=== PATIENT | female | born 1975 | race Caucasian/White ===

== ENCOUNTER 2017-06-02 17:52 | Emergency (ER) | payer MEDICARE, MEDICAID ==
--- NOTE | 2017-06-02 18:23 | Emergency Department Record ---
History of Present Illness - General Chief Complaint: Seizures Stated Complaint: SEIZURE Time Seen by Provider: 06/02/17 18:15 Source: Patient, EMS Mode of Arrival: EMS Limitations: Altered mental status - History of Present Illness Initial Comments: 41 yo female presents by EMS with AMS after a possible seizure. She had been in her prior normal state of health before the event. She was over at her sisters home visiting and watching TV. Her sister had step out to buy some snacks per the parents. Upon return the patient was incoherent and shaking. She had not been ill or having any symptoms earlier. Per her parents she might have had a seizure 20 years ago. She does not smoke, rarely drinks and family is unaware of any history of drug use. Her PCP is Dr Ernandez in [place]. the [id number] presented to the ED at 19:00 He reports the patient was in her usual state of health. They heard a loud noise and call for help. The patient was found in the kitchen, clinched up with sharking, She had clinched hands and fist. He stated she was not verbal and seems to slur and have droop to the face. This lasted about 15 minutes total then she seemed to relax. Her words slowly returned to understandable but not able to put complete thoughts together. Onset/Timin -: Minutes(s) Duration of Episode: 15 -: Minutes(s) Witnessed: Yes - by bystander Trauma: No Seizure History: Other (Possibly 20 years ago) Associated Symptoms: Confusion - [place] Coma Scale Eye Response: (4) Open spontaneously Motor Response: (5) Localizes to pain Verbal Response: (4) Confused conversation [place] Total: 13 - Related Data Home Medications Medication Instructions Recorded Confirmed Last Taken Carisoprodol [Soma] 350 mg PO QID 10/05/14 06/02/17 06/02/17 Pantoprazole Sodium [Protonix] 40 mg PO DAILY 10/05/14 06/02/17 06/02/17 Divalproex Sodium [Depakote] 500 mg PO QHS 06/02/17 06/02/17 06/02/17 Levothyroxine Sodium [Synthroid] 75 mcg PO DAILY 06/02/17 06/02/17 06/02/17 Olanzapine [Zyprexa] 20 mg PO DAILY 06/02/17 06/02/17 06/02/17 Allergies Allergy/AdvReac Type Severity Reaction Status Date / Time No Known Drug Allergies Allergy Verified 10/05/14 18:24 Travel Screening - Travel/Exposure Within Last 30 Days Have you traveled within the last 30 days?: No - Travel/Exposure Within Last Year Have you traveled outside the [place] in the last year?: No - Additonal Travel Details Have you been exposed to anyone with a communicable illness?: No Review of Systems ROS unobtainable: Due to mental status Past Medical History - SOCIAL HISTORY Smoking Status: Current every day smoker Alcohol Use: None Drug Use: None - RESPIRATORY Hx Respiratory Disorders: No Comment:: denies - CARDIOVASCULAR Hx Cardio Disorders: No Comment:: denies - NEURO Hx Neuro Disorders: No - GI Hx GI Disorders: Yes Hx Reflux: Yes - Hx Genitourinary Disorders: No - ENDOCRINE Hx Endocrine Disorders: Yes Hx Diabetes: No Hx Thyroid Disease: Yes - MUSCULOSKELETAL Hx Musculoskeletal Disorders: No - PSYCH Hx Psych Problems: Yes Hx Anxiety: Yes Hx Behavior Problems: Yes Hx Depression: Yes Comment:: bipolar - HEMATOLOGY/ONCOLOGY Comment:: possible cancer Family Medical History Any Significant Family History?: No Family Hx Comment (NOT TO BE USED IN PLACE OF ITEMS BELOW): unable to get answer from patient Physical Exam - General General Appearance: Other (Resting with eyes closed, opens eyes to voice but unable to sustain a complete sentance, words are understandable, slurred) - Head Head exam: Atraumatic, Normocephalic, Normal inspection Head exam detail: negative: Abrasion - Eye Eye exam: Normal appearance, PERRL. negative: Conjunctival injection, Periorbital swelling - ENT ENT exam: Normal exam, Mucous membranes moist Ear exam: Normal external inspection Nasal Exam: Normal inspection Mouth exam: Normal external inspection Teeth exam: Normal inspection Throat exam: Normal inspection - Neck Neck exam: Normal inspection, Full ROM. negative: Tenderness - Respiratory Respiratory exam: Normal lung sounds bilaterally. negative: Respiratory distress - Cardiovascular Cardiovascular Exam: Regular rate, Normal rhythm, Normal heart sounds Peripheral Pulses: 2+: Radial (R), Radial (L) - GI/Abdominal GI/Abdominal exam: Soft, Normal bowel sounds. negative: Tenderness - Rectal Rectal exam: Deferred - exam: Deferred - Extremities Extremities exam: Normal inspection, Full ROM, Normal capillary refill. negative: Tenderness - Back Back exam: Reports: Normal inspection, Full ROM. Denies: Muscle spasm, Rash noted, Tenderness - Neurological Neurological exam: Abnormal gait, Altered. negative: Oriented X3 - Psychiatric Psychiatric exam: Flat affect - Skin Skin exam: Dry, Intact, Normal color, Warm Course Vital Signs 06/02/17 17:55 Temperature 98.5 F Pulse Rate 96 H Respiratory 20 Rate Blood Pressure 104/79 Pulse Ox 96 - Reevaluation(s) Reevaluation #1: The CBC was reviewed. No acute changes The CMP was reviewed No acute changes The Alcohol, Salivate, Acetaminophen were negative Depakote <10 Ammonia 22 06/02/17 19:24 Reevaluation #2: Recheck. The patient is alert with slow but full sentences. She is slurred and slowed. She is mildly tremulous all over. CN intact as tested with symmetric face, smile, eye closure, tongue. No PND of the upper extremities. No recall of the events. Normal Finger to nose. No PND of the lower legs. NIH 0 06/02/17 19:36 06/02/17 19:53 Reevaluation #3: HCT is negative EKG NSR rate 91, intervals QTC 577, [place] normal, ST normal 06/02/17 19:48 06/02/17 19:52 With the seizure vs syncope vs other and the prolonged Qtc the patient will need to be admitted for further monitoring and work up She prefers [facility]. [facility] was contacted. 06/02/17 19:54 Reevaluation #4: I LORETO Hdez She will accept the transfer for admission 06/02/17 20:01 Medical Decision Making - Lab Data Result diagrams: 06/02/17 18:05 06/02/17 18:05 Disposition Disposition: Transfer Clinical Impression: Encephalopathy acute, Seizure, Prolonged Q-T interval on ECG Disposition: Acute Care Hospital Transfer Transfer To: [facility] Reason For Transfer: Seizure vs Syncope Accepting Physician: Ketty Time Discussed w/Accepting Physician: 20:02 Forms: Patient Portal Access Time of Disposition: 20:02 Quality - Quality Measures Quality Measures: N/A - Blood Pressure Screening Does Patient Have Any of the Following: No Blood Pressure Classification: Normal BP Reading Systolic Measurement: 104 Diastolic Measurement: 79 Screening for High Blood Pressure: < Normal BP, F/U Not Required > [G8783]
[2017-06-02 18:37] LABS: BASO % 0.3 % (0-6); EOS % 1.6 % (0-6); GRAN % 39.1 % (47-80); HEMATOCRIT 40.3 % (35.0-47.0); HEMOGLOBIN 14.1 gm/dl (11.6-16.0); LYMPH % 48.7 % (16-45); MEAN CELL VOLUME 94.8 fl (81-97); MEAN CORPUSCULAR HEMOGLOBIN 33.2 pg (27-33); MEAN PLATELET VOLUME 10.6 fl (7.4-10.4); MONO % 10.3 % (0-9); PLATELET COUNT 334 K/uL (130-400); RED BLOOD COUNT 4.25 M/uL (3.80-5.40); RED CELL DISTRIBUTION WIDTH 12.7 % (11.5-14.5); WHITE BLOOD COUNT W/O DIFF 9.5 K/uL (4.2-12.2)
[2017-06-02 18:48] LABS: AMMONIA 20.9 umol/L (9-30); LACTIC ACID 1.8 mmol/L (0.7-2.1)
[2017-06-02 19:03] LABS: BLOOD UREA NITROGEN 6 mg/dL (7-17); CREATININE 0.7 mg/dL (0.52-1.04); EST GLOMERULAR FILTRATION RATE > 60 ml/min; GLUCOSE,RANDOM 88 mg/dL (70-110)
[2017-06-02 19:04] LABS: ACETAMINOPHEN < 10.0 ug/mL (10.0-30.0); ALB/GLOB RATIO 1.5 (1.1-1.8); ALBUMIN 4.3 gm/dL (3.5-5.0); ALKALINE PHOSPHATASE 62 U/L (38-126); ALT/SGPT 37 U/L (9-52); AST/SGOT 28 U/L (14-36); CREATINE PHOSPHOKINASE 52 U/L (30-135); SALICYLATE < 1.0 mg/dL (2.8-20.0); TOTAL PROTEIN 7.1 gm/dL (6.3-8.2); TROPONIN I < 0.012 ng/mL (0.00-0.034)
[2017-06-02 19:05] LABS: VALPROIC ACID (DEPAKENE) < 10.0 ug/mL (50.0-100.0)
[2017-06-02 19:35] LABS: URINE APPEARANCE CLEAR; URINE BILIRUBIN NEGATIVE (NEGATIVE); URINE BLOOD NEGATIVE (NEGATIVE); URINE COLOR YELLOW; URINE GLUCOSE (UA) NEGATIVE (NEGATIVE); URINE KETONE NEGATIVE (NEGATIVE); URINE LEUKOCYTE ESTERASE NEGATIVE (NEGATIVE); URINE NITRITE NEGATIVE (NEGATIVE); URINE PROTEIN NEGATIVE (NEGATIVE); URINE UROBILINOGEN 0.2 E.U./dL (0.20 - 1.00)
[2017-06-02 19:36] LABS: HCG,QUALITATIVE URINE NEGATIVE (NEGATIVE)
[2017-06-02 19:38] LABS: AMPHETAMINE SCREEN URINE NOT DETECTED; BARBITURATE SCREEN URINE NOT DETECTED; BENZODIAZEPINE SCREEN URINE DETECTED; COCAINE SCREEN URINE NOT DETECTED; METHADONE SCREEN URINE NOT DETECTED; METHAMPHETAMINE SCREEN NOT DETECTED; OPIATE SCREEN URINE NOT DETECTED; OXYCODONE SCREEN URINE NOT DETECTED; PHENCYCLIDINE SCREEN URINE NOT DETECTED; PROPOXYPHENE SCREEN URINE NOT DETECTED; THC SCREEN URINE NOT DETECTED; TRICYCLIC ANTIDEPRESSANT SCRN NOT DETECTED
--- NOTE | 2017-06-04 22:11 | CT SCAN REPORT ---
EXAM: CT SCAN HEAD WO CONTRAST HISTORY: SEIZURE. TECHNIQUE: CT brain without contrast. COMPARISON: None. FINDINGS: The globes are intact. Paranasal sinuses and mastoid air cells are unremarkable. No displaced or depressed skull fracture. No intra or extraaxial hemorrhage. CT limited for evaluation of acute infarct. No CT evidence for large or territorial acute infarct. No mass or midline shift. IMPRESSION: NEGATIVE EXAM. JOB NUMBER: [id number] MTDD
== END 2017-06-02 21:30 | disposition short-term general hospital (02) ==
LOC: ER 17:52
DX: G93.40 Encephalopathy, unspecified (principal); R56.9 Unspecified convulsions; I45.81 Long QT syndrome; R41.82 Altered mental status, unspecified; Z79.899 Other long term (current) drug therapy
CPT/HCPCS: 99285 ×2; 82550; 83605; 83735; 82140; 85025; 84484; 80053; 81003; 81025; 80305; 80164; 70450; 93005; 93010; G0480 ×3; 80320; 80329

== ENCOUNTER 2017-10-09 21:19 | Emergency (ER) | payer MEDICARE, MEDICAID ==
--- NOTE | 2017-10-09 21:47 | Emergency Department Record ---
History of Present Illness - General Chief Complaint: Fall Injury Stated Complaint: FALL INJURY Time Seen by Provider: 10/09/17 21:35 Source: Patient Mode of Arrival: Ambulatory Limitations: No limitations - History of Present Illness Initial Comments: The patient is here due to tripping and falling 5 hours ago and injuring the L side of her face. She denies any LOC but states she did hit her head. The patient did sustain a laceration to the L maxilla area. She denies any neck pain , blurred vision, nausea, vomiting, or confusion. She did drive herself to the ER and states she is not on any blood thinner medicines. She also states her last TD was 4 years ago. The patient does have a significant psych. hx and is on multiple psych medicines. MD Complaint: Fall Onset/Timin -: Hour(s) Fall From: Standing When Fall Occurred: 4-6 hours W[employer] HAND Fall Witnessed: No Place Fall Occurred: Home Loss of Consciousness: None Prolonged Down Time?: No Symptoms Prior to Fall: None Location: Head, Face Severity scale (1-10): 7 Associated Symptoms: Denies - [place] Coma Scale Eye Response: (4) Open spontaneously Motor Response: (6) Obeys commands Verbal Response: (5) Oriented [place] Total: 15 - Related Data Allergies Allergy/AdvReac Type Severity Reaction Status Date / Time desvenlafaxine [From Pristiq] Allergy shakes Verified 10/09/17 21:27 metoclopramide [From Reglan] AdvReac VOMITING Verified 10/09/17 21:27 Travel Screening - Travel/Exposure Within Last 30 Days Have you traveled within the last 30 days?: No - Travel Symptoms Symptom Screening: None Review of Systems Constitutional: Denies: Chills, Fever Eyes: Denies: Eye discharge ENT: Denies: Congestion Respiratory: Denies: Cough, Dyspnea Past Medical History - SOCIAL HISTORY Smoking Status: Current every day smoker Alcohol Use: None - RESPIRATORY Hx Respiratory Disorders: No Comment:: denies - CARDIOVASCULAR Hx Cardio Disorders: No Comment:: denies - NEURO Hx Neuro Disorders: No - GI Hx GI Disorders: Yes Hx Reflux: Yes - Hx Genitourinary Disorders: No - ENDOCRINE Hx Endocrine Disorders: Yes Hx Diabetes: No Hx Thyroid Disease: Yes - MUSCULOSKELETAL Hx Musculoskeletal Disorders: No - PSYCH Hx Psych Problems: Yes Hx Anxiety: Yes Hx Behavior Problems: Yes Hx Depression: Yes Comment:: bipolar - HEMATOLOGY/ONCOLOGY Hx Hematology/Oncology Disorders: No Comment:: possible cancer Family Medical History Any Significant Family History?: Yes Hx Cancer: Grandparents Physical Exam - General General Appearance: Alert, Oriented x3, Cooperative, No acute distress - Head Head exam: Atraumatic, Normocephalic, Normal inspection - Eye Eye exam: Normal appearance, PERRL - ENT ENT exam: negative: Normal exam (There is a 2 cm laceration to the L maxilla area.) - Neck Neck exam: Normal inspection, Full ROM. negative: Tenderness (There is no Cspine tenderness.) - Respiratory Respiratory exam: Normal lung sounds bilaterally. negative: Respiratory distress - Cardiovascular Cardiovascular Exam: Regular rate, Normal rhythm, Normal heart sounds - Extremities Extremities exam: Normal inspection, Full ROM, Normal capillary refill. negative: Tenderness - Neurological Neurological exam: Alert (The patient's speech is somewhat slow at times but she says that is normal for her due to her psych medicines.), Normal gait, Oriented X3. negative: Abnormal gait, Altered, Motor sensory deficit Course Vital Signs 10/09/17 21:28 Temperature 97.6 F Pulse Rate [ 98 H Pulse Ox Probe] Respiratory 28 H Rate Blood Pressure 111/67 [Left Arm] Pulse Ox 98 - Reevaluation(s) Reevaluation #1: Procedure note: The L facial LAC was anesth. with 1.5 cc's [place] 1% with Epi. The lac was cleansed with sterile saline and betadine. The lac was then closed with 6 5.0 nylon sutures. There were no complications. 10/09/17 22:50 Reevaluation #2: The patient is doing very well at this time. Her gait is steady and her speech clear. I did ask her about the positive drug screen and she states she does chronically take Bryson and Xanax. She states she did not overdose or take to many of them. She is to keep her laceration clean and have the sutures removed in 7 days. 10/09/17 23:11 Medical Decision Making - Data Complexity MDM Data: Labs Ordered and/or Reviewed, X-Ray Ordered and/or Reviewed - Lab Data Result diagrams: 10/09/17 21:47 10/09/17 21:47 - Radiology Data Radiology results: Report reviewed (Head and Maxillofacial CT: Neg for any acute abnormalities.) Disposition Disposition: Discharge Clinical Impression: Facial injury Qualifiers: Encounter type: initial encounter Qualified Code(s): S09.93XA - Unspecified injury of face, initial encounter Disposition: Home, Self-Care Condition: (2) Stable Instructions: Facial Laceration (ED) Additional Instructions: Please take Tylenol or Motrin for pain. Please keep the laceration dry for 2 days then no soaking. Use ice to the swollen areas. Have the sutures removed in 7 days. Forms: Patient Portal Access Time of Disposition: 23:22 Quality - Quality Measures Quality Measures: N/A - Blood Pressure Screening View Details: Yes Does Patient Have Any of the Following: No Blood Pressure Classification: Pre-Hypertensive BP Reading Systolic Measurement: 131 Diastolic Measurement: 81 Screening for High Blood Pressure: < Pre-Hypertensive BP, F/U Documented > [ G8950] Pre-Hypertensive Follow-up Interventions: Referral to alternative/primary care provider.
[2017-10-09 21:54] LABS: BASO % 0.4 % (0-6); EOS % 0.5 % (0-6); GRAN % 60.6 % (47-80); HEMATOCRIT 36.3 % (35.0-47.0); HEMOGLOBIN 12.1 gm/dl (11.6-16.0); LYMPH % 31.4 % (16-45); MEAN CELL VOLUME 98.6 fl (81-97); MEAN CORPUSCULAR HEMOGLOBIN 32.8 pg (27-33); MEAN CORPUSCULAR HGB CONC 33.3 g/dl (32-36); MEAN PLATELET VOLUME 9.5 fl (7.4-10.4); MONO % 7.1 % (0-9); PLATELET COUNT 324 K/uL (130-400); RED BLOOD COUNT 3.68 M/uL (3.80-5.40); RED CELL DISTRIBUTION WIDTH 12.6 % (11.5-14.5); WHITE BLOOD COUNT W/O DIFF 9.1 K/uL (4.2-12.2)
[2017-10-09 22:04] LABS: BLOOD UREA NITROGEN 7 mg/dL (6-20); CREATININE 0.6 mg/dL (0.5-0.9); EST GLOMERULAR FILTRATION RATE > 60 mL/min
[2017-10-09 22:05] LABS: TOTAL PROTEIN 6.4 g/dL (6.6-8.7)
[2017-10-09 22:06] LABS: GLUCOSE,RANDOM 85 mg/dL (74-109)
[2017-10-09 22:09] LABS: ALB/GLOB RATIO 1.8 (1.1-1.8); ALBUMIN 4.1 g/dL (4.0-5.0); ALKALINE PHOSPHATASE 59 U/L (35-104); ALT/SGPT 11 U/L (<33); AST/SGOT 20 U/L (10.0-35.0)
[2017-10-09] MEDS ORDERED: POTASSIUM CHLORIDE 20 MEQ TABLET PO ONE (22:21)
[2017-10-09 23:05] LABS: TRICYCLIC ANTIDEPRESSANT SCRN NOT DETECTED
[2017-10-09 23:06] LABS: AMPHETAMINE SCREEN URINE NOT DETECTED; BARBITURATE SCREEN URINE NOT DETECTED; BENZODIAZEPINE SCREEN URINE DETECTED; COCAINE SCREEN URINE NOT DETECTED; METHADONE SCREEN URINE NOT DETECTED; METHAMPHETAMINE SCREEN NOT DETECTED; OPIATE SCREEN URINE NOT DETECTED; OXYCODONE SCREEN URINE DETECTED; PHENCYCLIDINE SCREEN URINE NOT DETECTED; PROPOXYPHENE SCREEN URINE NOT DETECTED; THC SCREEN URINE NOT DETECTED
[2017-10-09] MEDS ORDERED: IBUPROFEN 400 MG TABLET PO ONE (23:20)
--- NOTE | 2017-10-11 06:21 | CT SCAN REPORT ---
EXAM: CT SCAN HEAD WO CONTRAST HISTORY: PATIENT HAS A HISTORY OF FALL. LEFT SIDE LACERATION. TECHNIQUE: Serial axial CT scan of the head was performed in 2.5 mm intervals from the base of the skull to the apex without the use of intravenous contrast. Sagittal and coronal reconstructions are provided. COMPARISON: CT scan dated 06/02/2017 is provided. FINDINGS: The ventricles, cisterns, and sulci appear within normal limits for size, shape, and attenuation. There is no mass or mass effect. The taylor-white differentiation appear within normal limits. There is no CT evidence of intra- or extra-axial fluid to suggest bleeding. Bone windows demonstrate no CT evidence of a fracture or dislocation of the skull. Moderate left periorbital soft tissue swelling is noted compatible with the patient's known history of fall and contusion. The paranasal sinuses are unremarkable. IMPRESSION: MODERATE LEFT PERIORBITAL SOFT TISSUE SWELLING IS NOTED WITHOUT CT EVIDENCE OF AN ACUTE INTRACRANIAL PROCESS. JOB NUMBER: [id number] MTDD
--- NOTE | 2017-10-11 06:28 | CT SCAN REPORT ---
EXAM: CT SCAN MAXILLOFACIAL WO CONTRAST HISTORY: PATIENT HAS A HISTORY OF FALL. TECHNIQUE: Serial axial CT scan of the face is performed at 2.5 mm intervals from the level of the mandible to the level of the supraorbital region. No intravenous contrast was administered. COMPARISON: CT scan of the head dated 06/02/2017 is provided. FINDINGS: Brain parenchyma is unremarkable. Bone windows demonstrate no CT evidence of a fracture or dislocation of the facial bones. No significant nasal septal deviation is noted. Ostiomeatal units are patent. The bilateral frontal, ethmoid, sphenoid, and maxillary sinuses are well- pneumatized and well-aerated. Bilateral globes and orbits are intact. Moderate left periorbital soft tissue swelling is noted with subcutaneous air compatible with contusion. There is no intra- or extraconal air or fluid identified within the left orbit. The visualized prevertebral soft tissue and parapharyngeal fat are unremarkable. The visualized parotid glands and submandibular glands are unremarkable. IMPRESSION: LEFT PERIORBITAL SOFT TISSUE SWELLING IS NOTED COMPATIBLE WITH THE PATIENT'S KNOWN HISTORY OF CONTUSION. BILATERAL GLOBES AND ORBITS ARE INTACT DISCUSSED ABOVE. JOB NUMBER: [id number] [facility]
== END 2017-10-09 23:34 | disposition home or self-care (01) ==
LOC: ER 21:19
DX: S01.412A Laceration without foreign body of left cheek and temporomandibular area, initial encounter (principal); S00.83XA Contusion of other part of head, initial encounter; W01.10XA Fall on same level from slipping, tripping and stumbling with subsequent striking against unspecified object, initial encounter; Y92.009 Unspecified place in unspecified non-institutional (private) residence as the place of occurrence of the external cause
CPT/HCPCS: 12011 ×2; 99283; 99284; 85025; 80053; 80305; 70450; 70486; G0480; 80320

== ENCOUNTER 2017-10-14 16:12 | Emergency (ER) | payer MEDICARE, MEDICAID ==
[2017-10-14] MEDS ORDERED: 0.9 % SODIUM CHLORIDE 1,000 ML BAG IV ONE ×2 (16:27→16:51)
--- NOTE | 2017-10-14 16:28 | Emergency Department Record ---
History of Present Illness - General Chief Complaint: Altered Mental Status Stated Complaint: SEIZURE Time Seen by Provider: 10/14/17 16:25 Source: Police, EMS - History of Present Illness Initial Comments: Per EMS and police this patient was driving her car through the drive through at [employer] when an employee witnessed her seize for about 20 seconds, lose consciousness, and then become confused. EMS was called and the patient refused care. The police were notified and patient was transported here. On arrival the patient wished to leave, but the request was declined. She does not remember what happened. She does remember being here on 10-09-17 when she was sutured on her let cheek for a laceration. Review of that chart shows she has a long history of psychiatric problems and is on depakote for seizures. The patient is requesting to eat her [employer] food. MD Complaint: Altered mental status, Confusion - Related Data Home Medications Medication Instructions Recorded Confirmed Last Taken Hydrocodone/Acetaminophen [[place] 1 tab PO Q6H PRN 10/14/17 10/14/17 10/14/17 10mg/325mg] Allergies Allergy/AdvReac Type Severity Reaction Status Date / Time desvenlafaxine [From Pristiq] Allergy shakes Verified 10/14/17 16:30 metoclopramide [From Reglan] AdvReac VOMITING Verified 10/14/17 16:30 Review of Systems Reviewed: No additional complaints except as noted below Constitutional: Reports: As per HPI. Denies: Chills, Fever, Malaise, Night sweats, Weakness, Weight change Eyes: Reports: As per HPI. Denies: Eye discharge, Eye pain, Photophobia, Vision change ENT: Reports: As per HPI. Denies: Congestion, Dental pain, Ear pain, Epistaxis , Hearing loss, Throat pain Respiratory: Reports: As per HPI. Denies: Cough, Dyspnea, Hemoptysis, Stridor, Wheezes Cardiovascular: Reports: As per HPI. Denies: Arrhythmia, Chest pain, Dyspnea on exertion, Edema, Murmurs, Orthopnea, Palpitations, Paroxysmal nocturnal dyspnea, Rheumatic Fever, Syncope Endocrine: Reports: As per HPI. Denies: Fatigue, Heat or cold intolerance, Polydipsia, Polyuria Gastrointestinal: Reports: As per HPI. Denies: Abdominal pain, Constipation, Diarrhea, Hematemesis, Hematochezia, Melena, Nausea, Vomiting Genitourinary: Reports: As per HPI. Denies: Abnormal menses, Discharge, Dyspareunia, Dysuria, Frequency, Hematuria, Incontinence, Retention, Urgency Musculoskeletal: Reports: As per HPI. Denies: Arthralgia, Back pain, Gout, Joint swelling, Myalgia, Neck pain Skin: Reports: As per HPI. Denies: Bruising, Change in color, Change in hair/ nails, Lesions, Pruritus, Rash Neurological: Reports: As per HPI. Denies: Abnormal gait, Confusion, Headache, Numbness, Paresthesias, Seizure, Tingling, Tremors, Vertigo, Weakness Psychiatric: Reports: As per HPI. Denies: Anxiety, Auditory hallucinations, Depression, Homicidal thoughts, Suicidal thoughts, Visual hallucinations Hematological/Lymphatic: Reports: As per HPI. Denies: Anemia, Blood Clots, Easy bleeding, Easy bruising, Swollen glands Past Medical History - SOCIAL HISTORY Smoking Status: Current every day smoker - RESPIRATORY Hx Respiratory Disorders: No Comment:: denies - CARDIOVASCULAR Hx Cardio Disorders: No Comment:: denies - NEURO Hx Neuro Disorders: No - GI Hx GI Disorders: Yes Hx Reflux: Yes - Hx Genitourinary Disorders: No - ENDOCRINE Hx Endocrine Disorders: Yes Hx Diabetes: No Hx Thyroid Disease: Yes - MUSCULOSKELETAL Hx Musculoskeletal Disorders: No - PSYCH Hx Psych Problems: Yes Hx Anxiety: Yes Hx Behavior Problems: Yes Hx Depression: Yes Comment:: bipolar - HEMATOLOGY/ONCOLOGY Hx Hematology/Oncology Disorders: No Comment:: possible cancer Family Medical History Hx Cancer: Grandparents Physical Exam - General General Appearance: Alert, No acute distress, Other (oriented to person, date and location ) Limitations: Altered mental status - Head Head exam: Normal inspection Head exam detail: Laceration (older sutured laceration to left cheek with surrounding contusion of yellow green faded discoloration) - Eye Eye exam: Normal appearance, PERRL, EOMI Pupils: Normal accommodation - ENT ENT exam: Normal exam, Mucous membranes moist, Normal external ear exam, Normal orophraynx, TM's normal bilaterally Ear exam: Normal external inspection. negative: External canal tenderness Nasal Exam: Normal inspection. negative: Discharge, Sinus tenderness Mouth exam: Normal external inspection, Tongue normal Teeth exam: Normal inspection. negative: Dental caries Throat exam: Normal inspection. negative: Tonsillar erythema, Tonsillar exudate - Neck Neck exam: Normal inspection, Full ROM. negative: Tenderness - Respiratory Respiratory exam: Normal lung sounds bilaterally. negative: Respiratory distress - Cardiovascular Cardiovascular Exam: Regular rate, Normal rhythm, Normal heart sounds - GI/Abdominal GI/Abdominal exam: Soft, Normal bowel sounds. negative: Tenderness - Rectal Rectal exam: Deferred - exam: Deferred - Extremities Extremities exam: Normal inspection, Full ROM, Normal capillary refill. negative: Tenderness - Back Back exam: Reports: Normal inspection, Full ROM. Denies: Muscle spasm, Rash noted, Tenderness - Neurological Neurological exam: Alert, CN II-XII intact, Normal gait, Reflexes normal, Other (speech slow and deliberate, sometimes confused). negative: Motor sensory deficit - Psychiatric Psychiatric exam: Normal affect, Normal mood - Skin Skin exam: Dry, Intact, Normal color, Warm Course - Reevaluation(s) Reevaluation #1: Results reviewed, CT scan and CXR both normal, patient ambulating normally to bathroom. Patient eating [employer] food. Sutures removed and steri strips applied to left cheek. 10/14/17 18:09 Reevaluation #2: Spoke with [employer] officer [place] who will come to see patient and reinforce her inability to drive a car due to seizures. Awaiting son 's arrival and rest of lab results to return. Patient is eager to de discharged. 10/14/17 18:31 Reevaluation #3: Discharge instructions given to patient and son who will drive her home. They understand she is not to drive due to the seizures. Awaiting valproic acid levels to outsole caser dosing prir to discharge home. 10/14/17 19:03 Medical Decision Making - Management Options MDM Management: No Additional Work-up Planned - Data Complexity MDM Data: Labs Ordered and/or Reviewed, X-Ray Ordered and/or Reviewed ( Noncontrast Head CT: Negative per rad. CXR two view Neg per rad.), EKG Ordered and/or Reviewed - Lab Data Result diagrams: 10/14/17 16:50 10/14/17 16:50 - EKG Data -: EKG Interpreted by Me EKG: No Acute Changes Disposition Disposition: Discharge Clinical Impression: Seizure, Encephalopathy chronic Disposition: Home, Self-Care Instructions: Recurrent Seizures in Adults (ED) Additional Instructions: YOU ARE NOT TO DRIVE A CAR BECAUSE OF YOUR SEIZURES. Home with family member. Continue present medications. Forms: Patient Portal Access Quality - Quality Measures Quality Measures: N/A - Blood Pressure Screening Does Patient Have Any of the Following: No Blood Pressure Classification: Pre-Hypertensive BP Reading Systolic Measurement: 121 Diastolic Measurement: 79 Screening for High Blood Pressure: < Pre-Hypertensive BP, F/U Documented > [ G8950] Pre-Hypertensive Follow-up Interventions: Follow-up with rescreen every year.
[2017-10-14 17:00] LABS: BASO % 0.4 % (0-6); EOS % 1.2 % (0-6); HEMATOCRIT 40.8 % (35.0-47.0); HEMOGLOBIN 13.6 gm/dl (11.6-16.0); LYMPH % 34.4 % (16-45); MEAN CELL VOLUME 98.3 fl (81-97); MEAN CORPUSCULAR HEMOGLOBIN 32.8 pg (27-33); MEAN CORPUSCULAR HGB CONC 33.3 g/dl (32-36); MEAN PLATELET VOLUME 9.7 fl (7.4-10.4); PLATELET COUNT 384 K/uL (130-400); RED BLOOD COUNT 4.15 M/uL (3.80-5.40); RED CELL DISTRIBUTION WIDTH 12.7 % (11.5-14.5); WHITE BLOOD COUNT W/O DIFF 6.9 K/uL (4.2-12.2)
[2017-10-14 17:11] LABS: INR 0.99; PARTIAL THROMBOPLASTIN TIME 25.5 SECONDS (24.5-39.1); PROTHROMBIN TIME (PATIENT) 10.7 SECONDS (9.5-12.1)
[2017-10-14 17:12] LABS: BLOOD UREA NITROGEN 5 mg/dL (6-20); CREATININE 0.6 mg/dL (0.5-0.9); EST GLOMERULAR FILTRATION RATE > 60 mL/min
[2017-10-14 17:13] LABS: TOTAL PROTEIN 6.9 g/dL (6.6-8.7)
[2017-10-14 17:15] LABS: GLUCOSE,RANDOM 70 mg/dL (74-109)
[2017-10-14 17:17] LABS: ALT/SGPT 12 U/L (<33)
[2017-10-14 17:18] LABS: ALB/GLOB RATIO 1.5 (1.1-1.8); ALBUMIN 4.1 g/dL (4.0-5.0); ALKALINE PHOSPHATASE 63 U/L (35-104); AMMONIA 11 umol/L (11.0-51.0); AST/SGOT 16 U/L (10.0-35.0)
[2017-10-14 17:20] LABS: ACETAMINOPHEN < 5.0 ug/mL (10.0-30.0); SALICYLATE < 0.3 mg/dL (2.8-20)
[2017-10-14 18:21] LABS: URINE APPEARANCE CLEAR; URINE BILIRUBIN NEGATIVE (NEGATIVE); URINE BLOOD NEGATIVE (NEGATIVE); URINE COLOR YELLOW; URINE GLUCOSE (UA) NEGATIVE (NEGATIVE); URINE KETONE TRACE (NEGATIVE); URINE LEUKOCYTE ESTERASE NEGATIVE (NEGATIVE); URINE NITRITE NEGATIVE (NEGATIVE); URINE PROTEIN NEGATIVE (NEGATIVE); URINE UROBILINOGEN 0.2 E.U./dL (0.20 - 1.00)
[2017-10-14 18:27] LABS: BARBITURATE SCREEN URINE NOT DETECTED; BENZODIAZEPINE SCREEN URINE DETECTED; METHADONE SCREEN URINE NOT DETECTED; TRICYCLIC ANTIDEPRESSANT SCRN NOT DETECTED
[2017-10-14 18:31] LABS: AMPHETAMINE SCREEN URINE NOT DETECTED; COCAINE SCREEN URINE NOT DETECTED; METHAMPHETAMINE SCREEN NOT DETECTED; OPIATE SCREEN URINE NOT DETECTED; OXYCODONE SCREEN URINE DETECTED; PHENCYCLIDINE SCREEN URINE NOT DETECTED; PROPOXYPHENE SCREEN URINE NOT DETECTED; THC SCREEN URINE NOT DETECTED
[2017-10-14 18:32] LABS: HCG,QUALITATIVE URINE NEGATIVE (NEGATIVE)
[2017-10-14] MEDS ORDERED: DIVALPROEX SODIUM 250 MG TAB.ER.24H PO SCH (19:30)
--- NOTE | 2017-10-14 23:11 | RADIOLOGY REPORT ---
EXAM: CHEST 2 VIEWS HISTORY: SEIZURE. TECHNIQUE: Chest x-ray, two views. COMPARISON: None. FINDINGS: Heart is not enlarged and there is no mediastinal mass. There is no acute infiltrate or vascular congestion identified. IMPRESSION: NO ACUTE CARDIAC OR PULMONARY ABNORMALITY. JOB NUMBER: [id number] MTDD
--- NOTE | 2017-10-14 23:16 | CT SCAN REPORT ---
EXAM: CT SCAN HEAD WO CONTRAST HISTORY: SEIZURE. ALTERED MENTAL STATUS. SLURRED SPEECH. TECHNIQUE: Noncontrast head CT. COMPARISON: 10/09/2017. FINDINGS: The ventricles and subarachnoid spaces are unremarkable. There is no mass or mass effect. No intra or extraaxial hemorrhage identified. No CT evidence for large acute territorial infarct. No fracture or acute osseous abnormality. Visualized sinuses are clear. IMPRESSION: UNREMARKABLE HEAD CT. IF THERE IS CONTINUED CLINICAL CONCERN FOR COUNTY ASSESSOR ABNORMALITY, AN MRI COULD BE OBTAINED. JOB NUMBER: [id number] [facility]
== END 2017-10-14 19:32 | disposition home or self-care (01) ==
LOC: ER 16:12
DX: R56.9 Unspecified convulsions (principal); G93.49 Other encephalopathy; R41.82 Altered mental status, unspecified; F17.210 Nicotine dependence, cigarettes, uncomplicated
CPT/HCPCS: 70450; 71020; 80053; 80164; 80305; 80320; 80329; 81003; 81025; 82140; 84443; 85025; 85610; 85730; 93005; 93010; 99284

== ENCOUNTER 2018-05-17 22:14 | Emergency (ER) | payer MEDICARE, MEDICAID ==
--- NOTE | 2018-05-17 22:53 | Emergency Department Record ---
History of Present Illness - General Chief Complaint: Altered Mental Status Stated Complaint: EVAL/PT NOT HERSELF Time Seen by Provider: 05/17/18 22:46 Source: Patient, Family, EMS Mode of Arrival: EMS Limitations: No limitations - History of Present Illness Initial Comments: 42 yo female presents to ED for evaluation following a well check by police. Patient was found to be "out of it" per police, EMS were called for evaluation. On examination, patient's son reports that the patient appears "really out of it" tonight. Patient denies SI or self harm, and her son at the bedside agrees that the patient has not expressed any thoughts of self harm of late. Patient denies taking more of her medication that is prescribed, but reports taking Valium for anxiety and Lyman for chronic back pain symptoms. MD Complaint: Altered mental status Onset/Timin -: Days(s) Severity: Moderate Consistency: Constant Associated Symptoms: Denies other symptoms - [place] Coma Scale Eye Response: (4) Open spontaneously Motor Response: (6) Obeys commands Verbal Response: (5) Oriented [place] Total: 15 - Related Data Home Medications Medication Instructions Recorded Confirmed Last Taken Diazepam 5 mg PO BID 05/17/18 05/17/18 Unknown Allergies Allergy/AdvReac Type Severity Reaction Status Date / Time desvenlafaxine [From Pristiq] AdvReac shakes Verified 05/17/18 22:17 metoclopramide [From Reglan] AdvReac VOMITING Verified 10/14/17 16:30 Travel Screening - Travel/Exposure Within Last 30 Days Have you traveled within the last 30 days?: No - Travel Symptoms Symptom Screening: None Review of Systems ROS unobtainable: Due to mental status Past Medical History - SOCIAL HISTORY Smoking Status: Current every day smoker - RESPIRATORY Hx Respiratory Disorders: No Comment:: denies - CARDIOVASCULAR Hx Cardio Disorders: No Comment:: denies - NEURO Hx Neuro Disorders: No - GI Hx GI Disorders: Yes Hx Reflux: Yes - Hx Genitourinary Disorders: No - ENDOCRINE Hx Endocrine Disorders: Yes Hx Diabetes: No Hx Thyroid Disease: Yes - MUSCULOSKELETAL Hx Musculoskeletal Disorders: Yes - PSYCH Hx Psych Problems: Yes Hx Anxiety: Yes Hx Behavior Problems: Yes Hx Depression: Yes Comment:: bipolar - HEMATOLOGY/ONCOLOGY Hx Hematology/Oncology Disorders: No Comment:: possible cancer Family Medical History Any Significant Family History?: Yes Family Hx Comment (NOT TO BE USED IN PLACE OF ITEMS BELOW): unable to get answer from patient Hx Cancer: Grandparents Physical Exam - General General Appearance: Alert, Oriented x3, Other (Patient has slurred speech on examination, appears drowsy but answers questions appropriately) - Head Head exam: Atraumatic, Normocephalic, Normal inspection Head exam detail: negative: Abrasion, Contusion, Saldivar's sign, General tenderness, Hematoma, Laceration - Eye Eye exam: Normal appearance. negative: Conjunctival injection, Periorbital swelling, Periorbital tenderness, Scleral icterus - ENT Ear exam: negative: Auricular hematoma, Auricular trauma Nasal Exam: negative: Active bleeding, Discharge, Dried blood, Foreign body Mouth exam: negative: Drooling, Laceration, Muffled voice, Tongue elevation - Neck Neck exam: Normal inspection. negative: Meningismus, Tenderness - Respiratory Respiratory exam: Normal lung sounds bilaterally. negative: Rales, Respiratory distress, Rhonchi, Stridor, Wheezes - Cardiovascular Cardiovascular Exam: Regular rate, Normal rhythm, Normal heart sounds - GI/Abdominal GI/Abdominal exam: Soft. negative: Rebound, Rigid, Tenderness - Rectal Rectal exam: Deferred - exam: Deferred - Extremities Extremities exam: Normal inspection. negative: Pedal edema, Tenderness - Back Back exam: Denies: CVA tenderness (R), CVA tenderness (L) - Neurological Neurological exam: Alert, Normal gait, Oriented X3 - Psychiatric Psychiatric exam: Normal affect, Normal mood - Skin Skin exam: Normal color. negative: Abrasion Type of lesion: negative: abrasion Course Vital Signs 05/17/18 22:18 Temperature 98.0 F Pulse Rate [ 98 H Pulse Ox Probe] Respiratory 20 Rate Blood Pressure 138/93 [Left Arm] Pulse Ox 99 - Reevaluation(s) Reevaluation #1: 05/18/18 00:20 EKG: NSR 90 Normal axis, normal intervals No acute ST-T wave changes are present. Laboratory studies were reviewed and are grossly unremarkable for an acute process. UDS positive for Benzo's and Opiates. Reevaluation #2: 05/18/18 00:36 Patient was reassessed and updated on all results thus far, speech is less slurred and more clear. Patient was asked about the circumstances leading to her arrival to the ED, reports that Officer Perry came to her home for a wellness evaluation and that EMS brought her to the ED. Will continue to monitor for 4 hours to ensure that the patient is stable for discharge at that time. Reevaluation #3: 05/18/18 01:37 Patient reassessed, resting comfortably on her phone. Will continue to monitor for 3.5-4 hours to ensure patient is not at risk of respiratory depression. Reevaluation #4: 05/18/18 02:00 Patient reassessed, denies needs at this time. Patient is alert, oriented, and appears stable for discharge with her son at this time. All questions were answered at the time of discharge. Medical Decision Making - Lab Data Result diagrams: 05/17/18 23:15 05/17/18 23:15 Disposition Disposition: Discharge Clinical Impression: Accidental overdose Qualifiers: Encounter type: initial encounter Qualified Code(s): T50.901A - Poisoning by unspecified drugs, medicaments and biological substances, accidental ( unintentional), initial encounter Disposition: Home, Self-Care Condition: (2) Stable Instructions: Adult Overdose (ED) Additional Instructions: Return to ED if your symptoms worsen or if you have any concerns. Do not take Valium and Lyman together as this may result in possible overdose. Follow-up with your family doctor in 3-5 days as directed. Forms: Patient Portal Access Time of Disposition: 02:01 Quality - Quality Measures Quality Measures: N/A - Blood Pressure Screening Does Patient Have Any of the Following: No Blood Pressure Classification: Pre-Hypertensive BP Reading Systolic Measurement: 127 Diastolic Measurement: 85 Screening for High Blood Pressure: < Pre-Hypertensive BP, F/U Documented > [ G8950] Pre-Hypertensive Follow-up Interventions: Referral to alternative/primary care provider.
[2018-05-17 23:04] LABS: AMPHETAMINE SCREEN URINE NOT DETECTED; BARBITURATE SCREEN URINE NOT DETECTED; BENZODIAZEPINE SCREEN URINE DETECTED; COCAINE SCREEN URINE NOT DETECTED; METHADONE SCREEN URINE NOT DETECTED; METHAMPHETAMINE SCREEN NOT DETECTED; OPIATE SCREEN URINE DETECTED; OXYCODONE SCREEN URINE NOT DETECTED; PHENCYCLIDINE SCREEN URINE NOT DETECTED; PROPOXYPHENE SCREEN URINE NOT DETECTED; THC SCREEN URINE NOT DETECTED; TRICYCLIC ANTIDEPRESSANT SCRN NOT DETECTED
[2018-05-17 23:20] LABS: BASO % 0.2 % (0-6); EOS % 0.7 % (0-6); GRAN % 65.4 % (47-80); HEMATOCRIT 41.4 % (35.0-47.0); HEMOGLOBIN 13.8 gm/dl (11.6-16.0); LYMPH % 27.3 % (16-45); MEAN CELL VOLUME 94.1 fl (81-97); MEAN CORPUSCULAR HEMOGLOBIN 31.4 pg (27-33); MEAN CORPUSCULAR HGB CONC 33.3 g/dl (32-36); MEAN PLATELET VOLUME 10.4 fl (7.4-10.4); MONO % 6.4 % (0-9); PLATELET COUNT 312 K/uL (130-400); RED CELL DISTRIBUTION WIDTH 12.4 % (11.5-14.5); WHITE BLOOD COUNT W/O DIFF 11.6 K/uL (4.2-12.2)
[2018-05-17 23:33] LABS: BLOOD UREA NITROGEN 9 mg/dL (6-20); CREATININE 0.6 mg/dL (0.5-0.9); EST GLOMERULAR FILTRATION RATE > 60 mL/min
[2018-05-17 23:34] LABS: TOTAL PROTEIN 6.8 g/dL (6.6-8.7)
[2018-05-17 23:36] LABS: GLUCOSE,RANDOM 106 mg/dL (74-109)
[2018-05-17 23:38] LABS: ALT/SGPT 10 U/L (<33)
[2018-05-17 23:39] LABS: ALB/GLOB RATIO 1.6 (1.1-1.8); ALBUMIN 4.2 g/dL (4.0-5.0); ALKALINE PHOSPHATASE 61 U/L (35-104); AST/SGOT 11 U/L (10.0-35.0)
== END 2018-05-18 05:15 | disposition home or self-care (01) ==
LOC: ER 22:14
DX: T42.4X1A Poisoning by benzodiazepines, accidental (unintentional), initial encounter (principal); T39.1X1A Poisoning by 4-Aminophenol derivatives, accidental (unintentional), initial encounter; R41.82 Altered mental status, unspecified; R47.81 Slurred speech; F17.210 Nicotine dependence, cigarettes, uncomplicated; M54.6 Pain in thoracic spine; G89.29 Other chronic pain
CPT/HCPCS: 80053; 80305; 83605; 85025; 93005; 93010; 99284

== ENCOUNTER 2018-11-19 03:15 | Emergency (ER) | payer MEDICARE ==
[2018-11-19] MEDS ORDERED: OLANZAPINE 10 MG VIAL IM ONE ×2 (03:23→11:07)
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
[2018-11-19 04:08] LABS: BASO % 0.5 % (0-6); GRAN % 56.4 % (47-80); HEMATOCRIT 42.4 % (35.0-47.0); HEMOGLOBIN 14.5 gm/dl (11.6-16.0); LYMPH % 30.1 % (16-45); MEAN CELL VOLUME 90.6 fl (81-97); MEAN CORPUSCULAR HGB CONC 34.2 g/dl (32-36); MEAN PLATELET VOLUME 10.6 fl (7.4-10.4); PLATELET COUNT 368 K/uL (130-400); RED BLOOD COUNT 4.68 M/uL (3.80-5.40); RED CELL DISTRIBUTION WIDTH 12.8 % (11.5-14.5); WHITE BLOOD COUNT W/O DIFF 12.2 K/uL (4.2-12.2)
[2018-11-19 04:16] LABS: BLOOD UREA NITROGEN 9 mg/dL (6-20); CREATININE 0.8 mg/dL (0.5-0.9); EST GLOMERULAR FILTRATION RATE > 60 mL/min
[2018-11-19 04:17] LABS: TOTAL PROTEIN 7.6 g/dL (6.6-8.7)
[2018-11-19 04:19] LABS: GLUCOSE,RANDOM 125 mg/dL (74-109)
[2018-11-19 04:21] LABS: BARBITURATE SCREEN URINE NOT DETECTED; METHADONE SCREEN URINE NOT DETECTED; TRICYCLIC ANTIDEPRESSANT SCRN DETECTED
[2018-11-19 04:22] LABS: ALB/GLOB RATIO 1.5 (1.1-1.8); ALBUMIN 4.5 g/dL (4.0-5.0); ALKALINE PHOSPHATASE 70 U/L (45-87); ALT/SGPT 10 U/L (<33); AST/SGOT 23 U/L (10.0-35.0)
[2018-11-19 04:22] LABS: AMPHETAMINE SCREEN URINE NOT DETECTED; BENZODIAZEPINE SCREEN URINE NOT DETECTED; COCAINE SCREEN URINE NOT DETECTED; METHAMPHETAMINE SCREEN NOT DETECTED; OPIATE SCREEN URINE NOT DETECTED; OXYCODONE SCREEN URINE NOT DETECTED; PHENCYCLIDINE SCREEN URINE NOT DETECTED; PROPOXYPHENE SCREEN URINE NOT DETECTED; THC SCREEN URINE NOT DETECTED
[2018-11-19 04:23] LABS: ACETAMINOPHEN < 5.0 ug/mL (10.0-30.0); SALICYLATE < 0.3 mg/dL (2.8-20)
[2018-11-19] MEDS ORDERED: LORAZEPAM 0.5 MG TABLET PO ONE ×2 (04:34→08:35)
[2018-11-19] MEDS ORDERED: OLANZAPINE 5MG TABLET PO STA (06:02)
[2018-11-19 07:05] LABS: URINE APPEARANCE CLEAR; URINE BILIRUBIN NEGATIVE (NEGATIVE); URINE BLOOD NEGATIVE (NEGATIVE); URINE COLOR YELLOW; URINE GLUCOSE (UA) NEGATIVE (NEGATIVE); URINE KETONE NEGATIVE (NEGATIVE); URINE LEUKOCYTE ESTERASE NEGATIVE (NEGATIVE); URINE NITRITE NEGATIVE (NEGATIVE); URINE PROTEIN NEGATIVE (NEGATIVE); URINE UROBILINOGEN 0.2 E.U./dL (0.20 - 1.00)
== END 2018-11-19 13:55 ==
LOC: ER 03:15
DX: F30.2 Manic episode, severe with psychotic symptoms (principal); R41.82 Altered mental status, unspecified; F17.210 Nicotine dependence, cigarettes, uncomplicated
CPT/HCPCS: 99285 ×2; 96372; 85025; 80053; 81003; 84443; 84703; 80305; 80164; G0480 ×3; 80320; 80329